=== PATIENT | female | born 1995 | race Caucasian/White ===

== ENCOUNTER 2017-08-09 07:38 | Emergency (ER) | payer BC ==
[~2017-08-09] VITALS: Ht 149.9 cm; Wt 56.5 kg
[2017-08-09 07:39] VITALS: BP 125/81; PULSE 76; RESP 16; TEMP 98.5; O2SAT 98
[2017-08-09] MEDS ORDERED: SODIUM CHLORIDE 0.9% FLUSH 10 ML FLUSH IVF PRN (08:00)
[2017-08-09 08:06] VITALS: BP_SYST 122; BP_SYST 124; BP_DIAS 81; BP_DIAS 84; PULSE 70
[2017-08-09 08:34] LABS: AUTOMATED NEUTROPHIL # 6.4 TH/MM3 (1.8-7.7); BASOPHIL % 0.5 % (0.0-2.0); EOSINOPHIL # 0.1 TH/MM3 (0-0.4); EOSINOPHIL % 0.6 % (0.0-4.0); HEMATOCRIT 38.6 % (35.0-46.0); HEMOGLOBIN 13.4 GM/DL (11.6-15.3); LYMPH % 22.5 % (9.0-44.0); LYMPHOCYTE # 2.1 TH/MM3 (1.0-4.8); MEAN CELL VOLUME 85.3 FL (80.0-100.0); MEAN CORPUSCULAR HEMOGLOBIN 29.7 PG (27.0-34.0); MEAN CORPUSCULAR HGB CONC 34.8 % (32.0-36.0); MEAN PLATELET VOLUME 8.6 FL (7.0-11.0); MONO % 7.5 % (0.0-8.0); MONOCYTE # 0.7 TH/MM3 (0-0.9); NEUT % 68.9 % (16.0-70.0); PLATELET COUNT 269 TH/MM3 (150-450); RED BLOOD COUNT 4.52 MIL/MM3 (4.00-5.30); RED CELL DISTRIBUTION WIDTH 12.4 % (11.6-17.2); WHITE BLOOD COUNT 9.2 TH/MM3 (4.0-11.0)
--- NOTE | 2017-08-09 08:40 | RADRPT ---
EXAM DATE/TIME: 08/09/2017 08:15 [place] COMPARISON: CHEST SINGLE AP, June 27, 2015, 19:17. INDICATIONS : Chest pain for 1 week. MEDICAL HISTORY : None. SURGICAL HISTORY : None. ENCOUNTER: Initial ACUITY: 1 week PAIN SCORE: 6/10 LOCATION: Left upper chest FINDINGS: A single view of the chest demonstrates the lungs to be symmetrically aerated without evidence of mas s, infiltrate or effusion. The cardiomediastinal contours are unremarkable. Osseous structures are intact. CONCLUSION: 1. No acute cardiopulmonary disease. Xu Lawson MD on August 09, 2017 at 8:38 Board Certified Radiologist. This report was verified electronically.
--- NOTE | 2017-08-09 08:43 | PD ---
HPI Chief Complaint: Chest Pain Time Seen by Provider: 07:53 Travel History International Travel<30 days: No Contact w/Intl Traveler<30days: No Traveled to known affect area: No History of Present Illness HPI 21-year-old female states she has been having persistent chest pain over the past couple weeks and feeling tired. She states she went to an urgent care and they told her she possibly had a virus but she has not been having any cough or congestion or other concurrent complaints. She states she has not had a chance to see her primary care physician because she just recently got insurance. She denies any recent travel. She denies any new medications were changed to her medical history since she was here recently. She denies specific modifying factors. Quality is pressure. Severity is progressive. Duration is couple of weeks. PFSH Past Medical History Medical History: Denies Significant Hx Cardiovascular Problems: Yes (SINUS TACH) Respiratory: Yes (SOB) Pneumonia: Yes ?: Not Past Surgical History Tonsillectomy: Yes Social History Alcohol Use: Yes (OCCAS) Tobacco Use: No Substance Use: No Allergies-Medications (Allergen,Severity, Reaction): Coded Allergies: albuterol (Unverified Allergy, Severe, 08/09/17) SYNCOPE Reported Meds & Prescriptions Reported Meds & Active Scripts Active No Active Prescriptions or Reported Medications Review of Systems Except as stated in HPI: all other systems reviewed are Neg Physical Exam Narrative GENERAL: 21-year-old female in no apparent distress SKIN: Focused skin assessment warm/dry. HEAD: Atraumatic. Normocephalic. EYES: No scleral icterus. No injection or drainage. ENT: No nasal bleeding or discharge. Mucous membranes pink and moist. NECK: Trachea midline. No JVD. CARDIOVASCULAR: Regular rate and rhythm. RESPIRATORY: No accessory muscle use. Clear to auscultation. Breath sounds equal bilaterally. GASTROINTESTINAL: Abdomen soft, non-tender, nondistended. MUSCULOSKELETAL: No obvious deformities. No clubbing. No cyanosis. No edema. NEUROLOGICAL: Awake and alert. No obvious cranial nerve deficits. Motor grossly within normal limits. Normal speech. PSYCHIATRIC: Appropriate mood and affect; insight and judgment normal. Data Data Last Documented VS Vital Signs Date Time Temp Pulse Resp B/P (MAP) Pulse Ox O2 Delivery O2 Flow Rate FiO2 08/09/17 08:06 70 122/81 (95) 124/84 (97) 08/09/17 07:39 98.5 16 98 Room Air Orders Orders Electrocardiogram (08/09/17 07:57) Basic Metabolic Panel (Bmp) (08/09/17 08:00) Complete Blood Count With Diff (08/09/17 08:00) D-Dimer (08/09/17 08:00) Magnesium (Mg) (08/09/17 08:00) Prothrombin Time / Inr (Pt) (08/09/17 08:00) Act Partial Throm Time (Ptt) (08/09/17 08:00) Chest, Single Ap (08/09/17 08:00) Ecg Monitoring (08/09/17 08:00) Bilateral Bp Monitoring (08/09/17 08:00) Iv Access Insert/Monitor (08/09/17 08:00) Oximetry (08/09/17 08:00) Sodium Chloride 0.9% Flush (Ns Flush) (08/09/17 08:00) Ed Urine Pregnancytest Poc (08/09/17 08:00) Ed Discharge Order (08/09/17 09:21) Labs Laboratory Tests Test 08/09/17 08:04 White Blood Count 9.2 TH/MM3 Red Blood Count 4.52 MIL/MM3 Hemoglobin 13.4 GM/DL Hematocrit 38.6 % Mean Corpuscular Volume 85.3 FL Mean Corpuscular Hemoglobin 29.7 PG Mean Corpuscular Hemoglobin Concent 34.8 % Red Cell Distribution Width 12.4 % Platelet Count 269 TH/MM3 Mean Platelet Volume 8.6 FL Neutrophils (%) (Auto) 68.9 % Lymphocytes (%) (Auto) 22.5 % Monocytes (%) (Auto) 7.5 % Eosinophils (%) (Auto) 0.6 % Basophils (%) (Auto) 0.5 % Neutrophils # (Auto) 6.4 TH/MM3 Lymphocytes # (Auto) 2.1 TH/MM3 Monocytes # (Auto) 0.7 TH/MM3 Eosinophils # (Auto) 0.1 TH/MM3 Basophils # (Auto) 0.0 TH/MM3 CBC Comment DIFF FINAL Differential Comment Prothrombin Time 10.8 SEC Prothromb Time International Ratio 1.1 RATIO Activated Partial Thromboplast Time 25.1 SEC D-Dimer Quantitative (PE/DVT) 0.44 MG/L FEU Blood Urea Nitrogen 17 MG/DL Creatinine 0.77 MG/DL Random Glucose 84 MG/DL Calcium Level 8.9 MG/DL Magnesium Level 2.2 MG/DL Sodium Level 140 MEQ/L Potassium Level 3.5 MEQ/L Chloride Level 105 MEQ/L Carbon Dioxide Level 26.8 MEQ/L Anion Gap 8 MEQ/L Estimat Glomerular Filtration Rate 94 ML/MIN MDM Medical Decision Making Medical Screen Exam Complete: Yes Emergency Medical Condition: Yes Medical Record Reviewed: Yes (Past history confirmed, recent ER visit reviewed) Interpretation(s) CBC & BMP Diagram 08/09/17 08:04 Calcium Level 8.9, Magnesium Level 2.2 Last 24 hours Impressions Chest X-Ray 08/09/17 0800 Signed Impressions: Service Date/Time: Wednesday, August 09, 2017 08:15 - CONCLUSION: 1. No acute cardiopulmonary disease. Xu Lawson MD Differential Diagnosis Musculoskeletal, pneumothorax, gastritis, PE, anemia Narrative Course We will check blood work, chest x-ray, EKG and reevaluate ed workup no emergent, Patient denies any new complaints and states that they are feeling better. all questions answered. Patient knows that follow up is incumbent on them and to return to the emergency room immediately if new or worsening symptoms develop. Patient given strict return precautions, vitals reviewed and are normal, agrees to further workup as an outpatient. Diagnosis Primary Impression: Chest wall pain Patient Instructions: General Instructions Additional Instructions: tylenol as needed, follow with a primary for recheck, return with any emergent need Med/Other Pt SpecificInfo: No Change to Meds Scripts No Active Prescriptions or Reported Meds Disposition: 01 DISCHARGE HOME Condition: Stable Radha Arechiga MD Aug 09, 2017 08:43
[2017-08-09 08:46] LABS: D-DIMER 0.44 MG/L FEU (0.00-0.50); INTERNATIONAL NORMALIZED RATIO 1.1 RATIO; PROTHROMBIN TIME - PATIENT 10.8 SEC (9.8-11.6)
[2017-08-09 08:52] LABS: BICARBONATE 26.8 MEQ/L (21.0-32.0); CALCIUM 8.9 MG/DL (8.5-10.1); CREATININE 0.77 MG/DL (0.50-1.00); MAGNESIUM 2.2 MG/DL (1.5-2.5)
--- NOTE | 2017-08-09 18:46 | EKG ---
Date Performed: 08/09/2017 Time Performed: 08:01:29 PTAGE: 21 years EKG: Sinus rhythm WITH SINUS ARRHYTHMIA NORMAL ECG Since the prior tracing, there has been no significant change PREVIOUS TRACING : 06/27/2015 18.06 DOCTOR: Smita Louise Interpretating Date/Time 08/09/2017 18:43:39
== END 2017-08-09 10:25 | disposition home or self-care (01) ==
LOC: NEPE 07:38
DX: R07.89 Other chest pain (principal); I49.8 Other specified cardiac arrhythmias
CPT/HCPCS: 71045; 80048; 83735; 84703; 85025; 85379; 85610; 85730; 93005; 99285